=== PATIENT | male | born 1960 | race Caucasian/White ===

== ENCOUNTER 2021-07-27 16:33 | Observation (INO) | payer SELFPAY ==
[2021-07-27] MEDS ORDERED: Sodium Chloride 0.9% 1,000 ML IV ONE ×2 (17:15→17:55)
--- NOTE | 2021-07-27 17:22 | EDM.PDOC ---
ED HPI GENERAL MEDICAL PROBLEM - General Stated Complaint: BLOOD/PROTEIN/SUGAR IN URINE Time Seen by Provider: 07/27/21 17:00 Source of Information: Reports: Patient History Limitations: Reports: No Limitations - History of Present Illness INITIAL COMMENTS - FREE TEXT/NARRATIVE: c/o malaise pt and from [facility], drove here 2d ago, [place] at [place] pt with chills and malaise and loss of taste x 2d, no fever ( has checked it several times) pt went to [facility] where u/a showed SG 1.025, pH 5.5, glucose 100, ketone 40, protein 100, no nitrate/l esterase, no wbc, 0-3 rbc, no bacteria advised to come to ED pt only on thyroid med, no medical problems not had COVID, has had Pfizer COVID vax x 2 and booster 5d ago (on 07/22) FS glucose 218 at [place] - Related Data Allergies Allergy/AdvReac Type Severity Reaction Status Date / Time No Known Allergies Allergy Verified 07/27/21 17:11 ED ROS GENERAL - Review of Systems Review Of Systems: See Below Constitutional: Reports: No Symptoms, Weakness, Fatigue. Denies: Fever, Chills, Malaise, Night Sweats, Diaphoresis, Decreased Appetite HEENT: Reports: No Symptoms Respiratory: Reports: No Symptoms. Denies: Cough Cardiovascular: Reports: No Symptoms. Denies: Chest Pain Endocrine: Reports: No Symptoms GI/Abdominal: Reports: No Symptoms : Reports: No Symptoms Musculoskeletal: Reports: No Symptoms Skin: Reports: No Symptoms Neurological: Reports: No Symptoms Psychiatric: Reports: No Symptoms Hematologic/Lymphatic: Reports: No Symptoms Immunologic: Reports: No Symptoms ED EXAM, GENERAL - Physical Exam Exam: See Below Exam Limited By: No Limitations General Appearance: Alert, WD/WN, No Apparent Distress Eye Exam: Bilateral Eye: Normal Inspection Ears: Hearing Grossly Normal Nose: Normal Inspection, Normal Mucosa, No Blood Throat/Mouth: Normal Inspection, Normal Lips, Normal Voice, No Airway Compromise Head: Atraumatic, Normocephalic Neck: Normal Inspection, Supple, Non-Tender, Full Range of Motion. No: Lymphadenopathy (R), Lymphadenopathy (L) Respiratory/Chest: No Respiratory Distress, Lungs Clear, Normal Breath Sounds, Chest Non-Tender Cardiovascular: Regular Rate, Rhythm, No Edema, No Murmur, No Rub GI/Abdominal: Soft, Non-Tender, No Distention Back Exam: Normal Inspection, Full Range of Motion Extremities: Normal Inspection, Normal Range of Motion, Non-Tender, No Pedal Edema, Other (dec'd turgor UEs without tenting) Neurological: Alert, Oriented, CN II-XII Intact, Normal Cognition, Normal Gait, No Motor/Sensory Deficits Psychiatric: Normal Affect, Normal Mood Skin Exam: Warm, Dry, Intact, Normal Color, No Rash Lymphatic: No Adenopathy Course - Vital Signs Last Recorded V/S: Last Vital Signs Temp 37.2 C 07/27/21 16:33 Pulse 95 07/27/21 16:33 Resp 18 07/27/21 16:33 BP 121/81 07/27/21 16:33 Pulse Ox 95 07/27/21 16:33 - Orders/Labs/Meds Orders: Active Orders 24 hr Category Date Time Status Admission Status [Patient Status] [ADT] Routine ADT 07/27/21 20:41 Ordered Abdomen Pelvis w Cont [CT] Stat Exams 07/27/21 18:18 Ordered Ang Chest [CT] Stat Exams 07/27/21 18:16 Taken Piperacillin/Tazobactam [Zosyn] 4.5 gm Med 07/27/21 20:45 Ordered Sodium Chloride 0.9% [Normal Saline AdvBag] 100 ml IV Q6H Medication Orders Piperacillin Sod/Tazobactam (Sod 4.5 gm/ Sodium Chloride) 100 mls @ 200 mls/hr IV Q6H CHRISTINA Labs: Laboratory Tests 07/27/21 07/27/21 07/27/21 Range/Units 17:20 17:22 17:22 WBC 15.7 H (3.2-10.1) x10-3/uL RBC 4.40 (3.90-5.90) x10(6)uL Hgb 13.4 (12.9-17.7) g/dL Hct 39.7 (38.3-50.1) % MCV 90.2 (80.8-98.7) fL MCH 30.4 (27.0-33.3) pg MCHC 33.7 (28.7-35.3) g/dL RDW 12.7 (12.4-15.0) % Plt Count 254 (117-477) x10(3)uL MPV 6.7 (6.7-11.0) fL Neut % (Auto) 82.1 H (40.3-71.8) % Lymph % (Auto) 6.9 L (15.8-45.3) % [place] % (Auto) 10.3 (5.5-15.2) % Eos % (Auto) 0.1 (0.1-6.8) % Baso % (Auto) 0.6 (0.3-3.8) % Neut # (Auto) 12.9 H (1.7-6.9) x10-3/uL Lymph # (Auto) 1.1 (0.5-4.5) x10-3/uL [place] # (Auto) 1.6 H (0.0-1.2) x10-3/uL Eos # (Auto) 0.0 (0.0-0.6) x10-3/uL Baso # (Auto) 0.1 (0.0-0.3) x10-3/uL Sodium 133 L (135-145) mmol/L Potassium 3.7 (3.5-5.3) mmol/L Chloride 97 L (100-110) mmol/L Carbon Dioxide 25 (21-32) mmol/L BUN 14 (7-18) mg/dL Creatinine 1.3 (0.70-1.30) mg/dL Est Cr Clr Drug Dosing TNP Estimated GFR (MDRD) 56 L (>60) BUN/Creatinine Ratio 10.8 (9-20) Glucose 128 H (80-116) mg/dL Calcium 8.9 (8.6-10.2) mg/dL Total Bilirubin 1.6 H (0.1-1.3) mg/dL Direct Bilirubin (0.10-0.20) mg/dL AST 41 H (5-25) IU/L ALT 71 H (12-36) U/L Alkaline Phosphatase 103 (56-112) IU/L C-Reactive Protein (0.5-0.9) mg/dL Total Protein 7.9 (6.0-8.0) g/dL Albumin 3.0 L (3.2-4.6) g/dL Globulin 4.9 g/dL Albumin/Globulin Ratio 0.6 Influenza Type A RNA Negative (NEGATIVE) Influenza Type B RNA Negative (NEGATIVE) SARS-CoV-2 RNA (MOISES) Negative (NEGATIVE) 07/27/21 07/27/21 Range/Units 17:22 17:22 WBC (3.2-10.1) x10-3/uL RBC (3.90-5.90) x10(6)uL Hgb (12.9-17.7) g/dL Hct (38.3-50.1) % MCV (80.8-98.7) fL MCH (27.0-33.3) pg MCHC (28.7-35.3) g/dL RDW (12.4-15.0) % Plt Count (117-477) x10(3)uL MPV (6.7-11.0) fL Neut % (Auto) (40.3-71.8) % Lymph % (Auto) (15.8-45.3) % [place] % (Auto) (5.5-15.2) % Eos % (Auto) (0.1-6.8) % Baso % (Auto) (0.3-3.8) % Neut # (Auto) (1.7-6.9) x10-3/uL Lymph # (Auto) (0.5-4.5) x10-3/uL [place] # (Auto) (0.0-1.2) x10-3/uL Eos # (Auto) (0.0-0.6) x10-3/uL Baso # (Auto) (0.0-0.3) x10-3/uL Sodium (135-145) mmol/L Potassium (3.5-5.3) mmol/L Chloride (100-110) mmol/L Carbon Dioxide (21-32) mmol/L BUN (7-18) mg/dL Creatinine (0.70-1.30) mg/dL Est Cr Clr Drug Dosing Estimated GFR (MDRD) (>60) BUN/Creatinine Ratio (9-20) Glucose (80-116) mg/dL Calcium (8.6-10.2) mg/dL Total Bilirubin (0.1-1.3) mg/dL Direct Bilirubin 0.84 H (0.10-0.20) mg/dL AST (5-25) IU/L ALT (12-36) U/L Alkaline Phosphatase (56-112) IU/L C-Reactive Protein 34.2 H* (0.5-0.9) mg/dL Total Protein (6.0-8.0) g/dL Albumin (3.2-4.6) g/dL Globulin g/dL Albumin/Globulin Ratio Influenza Type A RNA (NEGATIVE) Influenza Type B RNA (NEGATIVE) SARS-CoV-2 RNA (MOISES) (NEGATIVE) Meds: Medications Generic Name Dose Route Start Last Admin Trade Name Freq PRN Reason Stop Dose Admin Piperacillin Sod/Tazobactam 100 mls @ 200 mls/hr 07/27/21 20:45 Sod 4.5 gm/ Sodium Chloride IV Q6H CHRISTINA Discontinued Medications Generic Name Dose Route Start Last Admin Trade Name Freq PRN Reason Stop Dose Admin Sodium Chloride 1,000 mls @ 999 mls/hr 07/27/21 17:15 07/27/21 17:20 Normal Saline IV 07/27/21 18:15 999 mls/hr .BOLUS ONE Administration Sodium Chloride 1,000 mls @ 999 mls/hr 07/27/21 17:55 07/27/21 18:00 Normal Saline IV 07/27/21 18:55 999 mls/hr .BOLUS ONE Administration Iopamidol 100 ml 07/27/21 18:23 07/27/21 18:48 Iopamidol 755 Mg/Ml 100 Ml Bottle IV 07/27/21 18:24 100 ml . DIRECTED ONE Administration - Re-Assessments/Exams Free Text/Narrative Re-Assessment/Exam: 07/27/21 21:03 chest CTawith no PE per radiologist CT abd/pelvis without contrast with no GB per radiologist, inhomogenities of left lobe of liver most c/w liver abscess, pt also with pneumobilia of left biliary duct pt reports he has his GB, that he had PUD 1.5y ago and his own doctor in [facility] had considerable difficulty locating his GB old labs and imaging not available, altho will contact PCP tomorrow to send prior labs and imaging reports d/w Dr Anthony who thinks pt may have an intrahepatic GB, he recommended admission with IV antbxs, said he would see pt in AM in consult will admit to obs states that international travel medical care covered under her insurance labs and imaging reviewed with [facility] on diversion all day, neither [facility] or [facility] have beds, pt placed on wait list at [facility] Departure - Departure Time of Disposition: 21:12 Disposition: Refer to Observation Preliminary Cause of *Q: Other_Special Instruction Clinical Impression: Liver abscess, Elevated C-reactive protein (CRP), Elevated WBC count, Left shift, Ketonuria, Moderate dehydration, Elevated liver function tests, Hyperbilirubinemia, High direct bilirubin, Chills, Low grade fever, Anorexia - Discharge Information *PRESCRIPTION DRUG MONITORING PROGRAM REVIEWED*: Not Applicable *COPY OF PRESCRIPTION DRUG MONITORING REPORT IN PATIENT LIBORIO: Not Applicable Sepsis Event Note (ED) - Focused Exam Vital Signs: Vital Signs Temp Pulse Resp BP Pulse Ox 07/27/21 16:33 37.2 C 95 18 121/81 95 - My Orders Last 24 Hours: My Active Orders 07/27/21 18:16 Ang Chest [CT] Stat 07/27/21 18:18 Abdomen Pelvis w Cont [CT] Stat 07/27/21 20:41 Admission Status [Patient Status] [ADT] Routine 07/27/21 20:45 Piperacillin/Tazobactam [Zosyn] 4.5 gm Sodium Chloride 0.9% [Normal Saline AdvBag] 100 ml IV Q6H - Assessment/Plan Last 24 Hours: My Active Orders 07/27/21 18:16 Ang Chest [CT] Stat 07/27/21 18:18 Abdomen Pelvis w Cont [CT] Stat 07/27/21 20:41 Admission Status [Patient Status] [ADT] Routine 07/27/21 20:45 Piperacillin/Tazobactam [Zosyn] 4.5 gm Sodium Chloride 0.9% [Normal Saline AdvBag] 100 ml IV Q6H
[2021-07-27 18:20] LABS: CORONAVIRUS COVID-19 NAA NEGATIVE (NEGATIVE)
[2021-07-27] MEDS ORDERED: Iopamidol 755 Mg/ML 100 ML Bottle IV ONE (18:23)
[2021-07-27] MEDS: Piperacillin/Tazobactam 4.5 GM in Sodium Chloride 0.9% 100 ML IV SCH (21:07)
[2021-07-27] MEDS: D5 1/2 NS w/ 20 mEq/L KCl 1,000 ML IV SCH (23:07)
[2021-07-27] MEDS: Acetaminophen 325 MG Tab PO PRN (23:13)
[2021-07-28] MEDS: Piperacillin/Tazobactam 4.5 GM in Sodium Chloride 0.9% 100 ML IV SCH ×4 (03:05→20:43)
[2021-07-28] MEDS: Sodium Chloride 0.9% 10 ML Syringe FLUSH PRN ×2 (03:41→18:33)
--- NOTE | 2021-07-28 09:09 | PCM.HP.2 ---
H&P History of Present Illness - General Date of Service: 07/28/21 Admit Problem/Dx: Admission Diagnosis/Problem Admission Diagnosis/Problem Abscess Source of Information: Patient History Limitations: Reports: No Limitations - History of Present Illness Initial Comments - Free Text/Narative: Neema is a 61-year-old male from [place] who presented to the ED with a 2 day history of malaise, chills and feeling poorly. He also endorsed decreased appetite. He is previously healthy and needs usual state of health until 2 days ago. He said complete vaccination. He CT scan of the abdomen and pelvis showed a possible abscess in the liver. Surgery has been consulted. Epigastric Pain Score (Numeric/FACES): 1 - Related Data Allergies/Adverse Reactions: Allergies Allergy/AdvReac Type Severity Reaction Status Date / Time No Known Allergies Allergy Verified 07/27/21 17:11 Home Medications: Home Meds Levothyroxine 175 mcg PO Q48H 07/28/21 [History] Levothyroxine 200 mcg PO Q48H 07/28/21 [History] Past Medical History Musculoskeletal History: Reports: Gout Endocrine/Metabolic History: Reports: Hypothyroidism - Infectious Disease History Infectious Disease History: Reports: Chicken Pox - Past Surgical History HEENT Surgical History: Reports: Tonsillectomy Other HEENT Surgeries/Procedures: Tonsillectomy when he was still young. GI Surgical History: Reports: Colonoscopy Other GI Surgeries/Procedures: Routine colonoscopy (for 50+) done last year. Endocrine Surgical History: Reports: None Social & Family History - Family History GI: Reports: Other (See Below) Other GI Family History: His father of colon cancer. Oncologic: Reports: Breast, Colon Other Oncologic Family History: His father of colon cancer, mom was recently diagnosed with breast CA. - Tobacco Use Tobacco Use Status *Q: Current Every Day Tobacco User Years of Tobacco use: 25 Packs/Tins Daily: 1 Used Tobacco, but Quit: No Second Hand Smoke Exposure: No - Caffeine Use Caffeine Use: Reports: Coffee Other Caffeine Use: Everyday coffee drinker. - Alcohol Use Date of Last Drink: 07/17/21 - Recreational Drug Use Recreational Drug Use: No H&P Review of Systems - Review of Systems: Review Of Systems: Comprehensive ROS is negative, except as noted in HPI. Exam - Exam Exam: See Below - Vital Signs Vital Signs: Last Vital Signs Temp 100.3 F 07/28/21 08:19 Pulse 97 07/28/21 08:19 Resp 18 07/28/21 08:19 BP 123/64 07/28/21 08:19 Pulse Ox 94 L 07/28/21 08:19 Weight: 115.694 kg - Exam General: Alert, Oriented, 4 HEENT: PERRLA, Hearing Intact, Mucosa Moist & [place], Nares Patent, Normal Nasal Septum, Posterior Pharynx Clear, Conjunctiva Clear, EOMI, EACs Clear, TMs Clear Neck: Supple, Trachea Midline, 2 Lungs: Clear to Auscultation, Normal Respiratory Effort Cardiovascular: Regular Rate, Regular Rhythm GI/Abdominal Exam: Normal Bowel Sounds, Soft, Non-Tender, No Organomegaly, No Distention, No Abnormal Bruit, No Mass, Pelvis Stable (Male) Exam: Deferred Rectal (Males) Exam: Deferred Back Exam: Normal Inspection, Full Range of Motion, NT Extremities: Normal Inspection, Normal Range of Motion, Non-Tender, No Pedal Edema, Normal Capillary Refill Skin: Warm, Dry, Intact Neurological: Cranial Nerves Intact, Reflexes Equal Bilateral Neuro Extensive - Mental Status: Alert, Oriented x3, Normal Mood/Affect, Normal Cognition Neuro Extensive - Motor, Sensory, Reflexes: CN II-XII Intact, Normal Gait, Normal Reflexes Psychiatric: Alert, Normal Affect, Normal Mood - Patient Data Lab Results Last 24 hrs: Laboratory Results - last 24 hr 07/27/21 07/27/21 07/27/21 Range/Units 17:20 17:22 17:22 WBC 15.7 H (3.2-10.1) x10-3/uL RBC 4.40 (3.90-5.90) x10(6)uL Hgb 13.4 (12.9-17.7) g/dL Hct 39.7 (38.3-50.1) % MCV 90.2 (80.8-98.7) fL MCH 30.4 (27.0-33.3) pg MCHC 33.7 (28.7-35.3) g/dL RDW 12.7 (12.4-15.0) % Plt Count 254 (117-477) x10(3)uL MPV 6.7 (6.7-11.0) fL Neut % (Auto) 82.1 H (40.3-71.8) % Lymph % (Auto) 6.9 L (15.8-45.3) % [place] % (Auto) 10.3 (5.5-15.2) % Eos % (Auto) 0.1 (0.1-6.8) % Baso % (Auto) 0.6 (0.3-3.8) % Neut # (Auto) 12.9 H (1.7-6.9) x10-3/uL Lymph # (Auto) 1.1 (0.5-4.5) x10-3/uL [place] # (Auto) 1.6 H (0.0-1.2) x10-3/uL Eos # (Auto) 0.0 (0.0-0.6) x10-3/uL Baso # (Auto) 0.1 (0.0-0.3) x10-3/uL Add Manual Diff Neutrophils % (Manual) (46-82) % Band Neutrophils % (0-6) % Lymphocytes % (Manual) (13-37) % Monocytes % (Manual) (4-12) % Sodium 133 L (135-145) mmol/L Potassium 3.7 (3.5-5.3) mmol/L Chloride 97 L (100-110) mmol/L Carbon Dioxide 25 (21-32) mmol/L BUN 14 (7-18) mg/dL Creatinine 1.3 (0.70-1.30) mg/dL Est Cr Clr Drug Dosing TNP Estimated GFR (MDRD) 56 L (>60) BUN/Creatinine Ratio 10.8 (9-20) Glucose 128 H (80-116) mg/dL Calcium 8.9 (8.6-10.2) mg/dL Total Bilirubin 1.6 H (0.1-1.3) mg/dL Direct Bilirubin (0.10-0.20) mg/dL AST 41 H (5-25) IU/L ALT 71 H (12-36) U/L Alkaline Phosphatase 103 (56-112) IU/L Troponin I (4.0-60.3) pg/mL C-Reactive Protein (0.5-0.9) mg/dL Total Protein 7.9 (6.0-8.0) g/dL Albumin 3.0 L (3.2-4.6) g/dL Globulin 4.9 g/dL Albumin/Globulin Ratio 0.6 Influenza Type A RNA Negative (NEGATIVE) Influenza Type B RNA Negative (NEGATIVE) SARS-CoV-2 RNA (MOISES) Negative (NEGATIVE) 07/27/21 07/27/21 07/28/21 Range/Units 17:22 17:22 06:45 WBC 15.2 H (3.2-10.1) x10-3/uL RBC 4.13 (3.90-5.90) x10(6)uL Hgb 12.7 L (12.9-17.7) g/dL Hct 37.3 L (38.3-50.1) % MCV 90.3 (80.8-98.7) fL MCH 30.7 (27.0-33.3) pg MCHC 33.9 (28.7-35.3) g/dL RDW 12.6 (12.4-15.0) % Plt Count 238 (117-477) x10(3)uL MPV 6.9 (6.7-11.0) fL Neut % (Auto) (40.3-71.8) % Lymph % (Auto) (15.8-45.3) % [place] % (Auto) (5.5-15.2) % Eos % (Auto) (0.1-6.8) % Baso % (Auto) (0.3-3.8) % Neut # (Auto) (1.7-6.9) x10-3/uL Lymph # (Auto) (0.5-4.5) x10-3/uL [place] # (Auto) (0.0-1.2) x10-3/uL Eos # (Auto) (0.0-0.6) x10-3/uL Baso # (Auto) (0.0-0.3) x10-3/uL Add Manual Diff Yes Neutrophils % (Manual) 82 (46-82) % Band Neutrophils % 3 (0-6) % Lymphocytes % (Manual) 10 L (13-37) % Monocytes % (Manual) 5 (4-12) % Sodium (135-145) mmol/L Potassium (3.5-5.3) mmol/L Chloride (100-110) mmol/L Carbon Dioxide (21-32) mmol/L BUN (7-18) mg/dL Creatinine (0.70-1.30) mg/dL Est Cr Clr Drug Dosing Estimated GFR (MDRD) (>60) BUN/Creatinine Ratio (9-20) Glucose (80-116) mg/dL Calcium (8.6-10.2) mg/dL Total Bilirubin (0.1-1.3) mg/dL Direct Bilirubin 0.84 H (0.10-0.20) mg/dL AST (5-25) IU/L ALT (12-36) U/L Alkaline Phosphatase (56-112) IU/L Troponin I (4.0-60.3) pg/mL C-Reactive Protein 34.2 H* (0.5-0.9) mg/dL Total Protein (6.0-8.0) g/dL Albumin (3.2-4.6) g/dL Globulin g/dL Albumin/Globulin Ratio Influenza Type A RNA (NEGATIVE) Influenza Type B RNA (NEGATIVE) SARS-CoV-2 RNA (MOISES) (NEGATIVE) 07/28/21 07/28/21 Range/Units 06:45 06:45 WBC (3.2-10.1) x10-3/uL RBC (3.90-5.90) x10(6)uL Hgb (12.9-17.7) g/dL Hct (38.3-50.1) % MCV (80.8-98.7) fL MCH (27.0-33.3) pg MCHC (28.7-35.3) g/dL RDW (12.4-15.0) % Plt Count (117-477) x10(3)uL MPV (6.7-11.0) fL Neut % (Auto) (40.3-71.8) % Lymph % (Auto) (15.8-45.3) % [place] % (Auto) (5.5-15.2) % Eos % (Auto) (0.1-6.8) % Baso % (Auto) (0.3-3.8) % Neut # (Auto) (1.7-6.9) x10-3/uL Lymph # (Auto) (0.5-4.5) x10-3/uL [place] # (Auto) (0.0-1.2) x10-3/uL Eos # (Auto) (0.0-0.6) x10-3/uL Baso # (Auto) (0.0-0.3) x10-3/uL Add Manual Diff Neutrophils % (Manual) (46-82) % Band Neutrophils % (0-6) % Lymphocytes % (Manual) (13-37) % Monocytes % (Manual) (4-12) % Sodium 136 (135-145) mmol/L Potassium 3.7 (3.5-5.3) mmol/L Chloride 101 (100-110) mmol/L Carbon Dioxide 24 (21-32) mmol/L BUN 13 (7-18) mg/dL Creatinine 1.3 (0.70-1.30) mg/dL Est Cr Clr Drug Dosing 61.95 Estimated GFR (MDRD) 56 L (>60) BUN/Creatinine Ratio 10.0 (9-20) Glucose 159 H (80-116) mg/dL Calcium 8.5 L (8.6-10.2) mg/dL Total Bilirubin (0.1-1.3) mg/dL Direct Bilirubin (0.10-0.20) mg/dL AST (5-25) IU/L ALT (12-36) U/L Alkaline Phosphatase (56-112) IU/L Troponin I 7.9 (4.0-60.3) pg/mL C-Reactive Protein 32.0 H* (0.5-0.9) mg/dL Total Protein (6.0-8.0) g/dL Albumin (3.2-4.6) g/dL Globulin g/dL Albumin/Globulin Ratio Influenza Type A RNA (NEGATIVE) Influenza Type B RNA (NEGATIVE) SARS-CoV-2 RNA (MOISES) (NEGATIVE) Result Diagrams: 07/28/21 06:45 07/28/21 06:45 #1 Interpretation EKG Date: 07/28/21 Rhythm: NSR [place]: Normal P-Wave: Present QRS: Normal ST-T: Normal Sepsis Event Note - Evaluation Sepsis Screening Result: No Definite Risk - Focused Exam Vital Signs: Vital Signs Temp Temp Temp Pulse Resp BP Pulse Ox 07/28/21 08:19 100.3 F 97 18 123/64 94 L 07/28/21 04:00 98.1 F 95 16 126/74 95 07/28/21 00:00 98.9 F 81 16 07/27/21 23:43 98.9 F 07/27/21 23:13 100.3 F 07/27/21 22:18 100.9 F H 100 16 120/79 95 07/27/21 21:30 99.3 F 96 18 97 - Problem List (1) Tobacco abuse SNOMED Code(s): 220374207 ICD Code: Z72.0 - TOBACCO USE Status: Acute Current Visit: Yes (2) Hypothyroidism SNOMED Code(s): 67813057 ICD Code: E03.9 - HYPOTHYROIDISM, UNSPECIFIED Status: Acute Current Visit: Yes (3) Liver abscess SNOMED Code(s): 34374204 ICD Code: K75.0 - ABSCESS OF LIVER Status: Acute Current Visit: Yes Problem List Initiated/Reviewed/Updated: Yes Orders Last 24hrs: Active Orders 24 hr Category Date Time Status Admission Status [Patient Status] [ADT] Routine ADT 07/27/21 20:41 Active Cardiac Monitoring [RC] CONTINUOUS Care 07/27/21 21:14 Active EKG Documentation Completion [RC] AM Care 07/28/21 06:00 Active EKG Documentation Completion [RC] ASDIRECTED Care 07/27/21 21:19 Active Height and Weight [RC] UPON Care 07/27/21 21:14 Active Oxygen Therapy [RC] PRN Care 07/27/21 21:14 Active Up ad Jocelyn [RC] ASDIRECTED Care 07/27/21 21:14 Active VTE/DVT Education [RC] Per Unit Routine Care 07/27/21 21:14 Active Vital Signs [RC] Q4H Care 07/27/21 21:14 Active Nothing per Oral After Midnight Diet [DIET] Diet 07/28/21 Breakfast Active Abdomen Ltd [US] Routine Exams 07/28/21 21:11 Ordered Abdomen Pelvis w Cont [CT] Stat Exams 07/27/21 18:18 Taken Ang Chest [CT] Stat Exams 07/27/21 18:16 Taken BASIC METABOLIC PANEL,BMP [CHEM] DAILY Lab 07/29/21 06:00 Ordered BASIC METABOLIC PANEL,BMP [CHEM] DAILY Lab 07/30/21 06:00 Ordered BASIC METABOLIC PANEL,BMP [CHEM] DAILY Lab 07/31/21 06:00 Ordered BASIC METABOLIC PANEL,BMP [CHEM] DAILY Lab 08/01/21 06:00 Ordered CBC WITH AUTO DIFF [HEME] DAILY Lab 07/29/21 05:00 Ordered CBC WITH AUTO DIFF [HEME] DAILY Lab 07/30/21 05:00 Ordered CBC WITH AUTO DIFF [HEME] DAILY Lab 07/31/21 05:00 Ordered CBC WITH AUTO DIFF [HEME] DAILY Lab 08/01/21 05:00 Ordered CRP [C-REACTIVE PROTEIN] [CHEM] DAILY Lab 07/29/21 05:00 Ordered CRP [C-REACTIVE PROTEIN] [CHEM] DAILY Lab 07/30/21 05:00 Ordered CRP [C-REACTIVE PROTEIN] [CHEM] DAILY Lab 07/31/21 05:00 Ordered CRP [C-REACTIVE PROTEIN] [CHEM] DAILY Lab 08/01/21 05:00 Ordered Acetaminophen [TylenoL] Med 07/27/21 22:55 Active 650 mg PO Q6H PRN D5 1/2 NS w/ 20 mEq/L KCl 1,000 ml Med 07/27/21 21:30 Active IV ASDIRECTED Levothyroxine Med 07/29/21 09:00 Active 175 mcg PO Q48H Levothyroxine Med 07/28/21 08:45 Active 200 mcg PO Q48H Piperacillin/Tazobactam [Zosyn] 4.5 gm Med 07/27/21 20:45 Active Sodium Chloride 0.9% [Normal Saline AdvBag] 100 ml IV Q6H Sodium Chloride 0.9% [Saline Flush] Med 07/28/21 04:04 Active 10 ml FLUSH ASDIRECTED PRN Resuscitation Status Routine Resus Stat 07/27/21 21:14 Ordered EKG 12 Lead [EK] AM Ther 07/28/21 05:11 Ordered EKG 12 Lead [EK] AM Ther 07/30/21 05:11 Ordered Medication Orders Acetaminophen (Acetaminophen 325 Mg Tab) 650 mg PO Q6H PRN PRN Reason: Fever Last Admin: 07/27/21 23:13 Dose: 650 mg Documented by: KIT Piperacillin Sod/Tazobactam (Sod 4.5 gm/ Sodium Chloride) 100 mls @ 200 mls/hr IV Q6H CHRISTINA Last Admin: 07/28/21 08:53 Dose: 200 mls/hr Documented by: Admin: 07/28/21 03:05 Dose: 200 mls/hr Documented by: Admin: 07/27/21 21:07 Dose: 200 mls/hr Documented by: KYREE Potassium Chloride/Dextrose/Sod Cl (D5 1/2 Ns W/ 20 Meq/L Kcl) 1,000 mls @ 75 mls/hr IV ASDIRECTED CHRISTINA Last Admin: 07/27/21 23:07 Dose: 75 mls/hr Documented by: KIT Levothyroxine Sodium (Levothyroxine 200 Mcg Tab *Ptom) 200 mcg PO Q48H CHRISTINA Levothyroxine Sodium (Levothyroxine 175 Mcg Tab *Ptom) 175 mcg PO Q48H CHRISTINA Sodium Chloride (Sodium Chloride 0.9% 10 Ml Syringe) 10 ml FLUSH ASDIRECTED PRN PRN Reason: Keep Vein Open Last Admin: 07/28/21 03:41 Dose: 10 ml Documented by: KIT Assessment/Plan Comment:: Continue IC antibiotics,fluid,NPO status until surgery has been consulted.
[2021-07-28] MEDS ORDERED: Non-Formulary Medication 1 Each (Levothyroxine [Levothyroxine] 175 MCG Tablet) PO SCH (09:15)
[2021-07-28] MEDS ORDERED: Non-Formulary Medication 1 Each (Levothyroxine [Levothyroxine] 200 MCG Tablet) PO SCH (09:15)
[2021-07-28] MEDS: LEVOTHYROXINE 200 MCG PO SCH (11:09)
[2021-07-28] MEDS: D5 1/2 NS w/ 20 mEq/L KCl 1,000 ML IV SCH (14:03)
[2021-07-28] MEDS: Acetaminophen 325 MG Tab PO PRN ×2 (14:36→20:53)
[2021-07-28] MEDS: metroNIDAZOLE/Normal Saline 500 MG in Premix Bag 1 BAG IV SCH (18:33)
--- NOTE | 2021-07-28 19:59 | CONS ---
DATE OF CONSULTATION: 07/28/2021 REQUESTING PHYSICIAN: Daniel Varghese MD HISTORY OF PRESENT ILLNESS: This 61-year-old male arrived here from his home in [facility] and noted rather sudden onset of symptoms of weakness, chills, and decreased appetite. The patient even recalls that during the drive, he did feel colder than normal. He says he felt completely normal before he left home. The patient was seen in the outpatient clinic yesterday for these symptoms, which he noted first 3 days ago and was admitted yesterday. He has been placed on IV antibiotics and currently says he feels better with more energy, fever, chills, and a general overall improvement. The patient has had some very mild epigastric discomfort, but no sharp abdominal pain. The patient has been evaluated with a CT scan done here, which was interpreted as showing a possible abscess in the left lobe of the liver. CT scan films are reviewed and show irregular mass effect in the left hepatic lobe. The gallbladder is not readily visualized. Interpretation suggest an abscess is most likely. Ultrasound has been performed today, but results are pending. The patient and his state that 2 years ago, he had sharp epigastric pain. An ultrasound was performed at that time in his home hospital and initially it was noted the gallbladder was difficult to see, but was later identified, but was not felt to be the problem at that time. Laboratory studies while in the hospital here have noted an elevated serum white blood cell count of over 15,000. His CRP is also elevated at 32. Liver functions show mild liver enzyme elevation with a bilirubin of 1.6. PAST MEDICAL HISTORY: Notes a history of hypothyroidism. He otherwise has been feeling well. He denies any known previous history of cardio or pulmonary disease. His only previous surgery was tonsillectomy. He, on repeated questioning, denies any previous abdominal surgery. FAMILY HISTORY: Notes that his mother did have to have cholecystectomy, but there was no other known history of GI disease in the family. SOCIAL HISTORY: The patient is currently retired and lives in [facility]. He is traveling here with his who is dealing with some family matters. SYSTEM REVIEW: Before the patient left on his trip, he says he felt well with no cough, cold, or sore throat symptoms. He has not been having any abdominal pain. Notes his bowel function has been normal with no recent change in bowel function. He states his last colonoscopy was in 2019 and it was normal. PHYSICAL EXAMINATION: VITAL SIGNS: Current temperature is 100.3, pulse 97, blood pressure is 123/64, respirations 18 and unlabored. GENERAL: The patient is alert adult male. He is currently in no acute distress. HEENT: Head is normocephalic. No scleral icterus. No cervical masses. HEART: Regular without murmur. LUNGS: Clear. Breath sounds are equal. There is no wheezing. ABDOMEN: The patient's abdomen is soft. There is no distention. No hepatic or splenic enlargement. No abdominal masses noted and only minimal tenderness to deep direct palpation in the epigastric region. EXTREMITIES: Show no obvious deformity. IMPRESSION: Infection, likely intraabdominal with possible hepatic abscess. RECOMMENDATIONS: Advised referral to tertiary care center for definitive treatment and continue use of IV antibiotics until definitive care for his hepatic abnormality can be performed. /[id number] [place]
[2021-07-29] MEDS: metroNIDAZOLE/Normal Saline 500 MG in Premix Bag 1 BAG IV SCH ×3 (00:53→16:44)
[2021-07-29] MEDS: Piperacillin/Tazobactam 4.5 GM in Sodium Chloride 0.9% 100 ML IV SCH ×4 (02:34→21:12)
[2021-07-29] MEDS: Acetaminophen 325 MG Tab PO PRN (05:46)
[2021-07-29] MEDS: D5 1/2 NS w/ 20 mEq/L KCl 1,000 ML IV SCH ×2 (08:06→22:45)
[2021-07-29] MEDS ORDERED: LEVOTHYROXINE 175 MCG PO SCH (09:00)
--- NOTE | 2021-07-29 09:06 | PCM.PN ---
- General Info Date of Service: 07/29/21 Subjective Update: Has had a fever this morning.Otherwise feels good. Functional Status: Reports: Pain Controlled - Review of Systems HEENT: Reports: No Symptoms Pulmonary: Reports: No Symptoms Cardiovascular: Reports: No Symptoms Gastrointestinal: Reports: No Symptoms - Patient Data Vitals - Most Recent: Last Vital Signs Temp 99.6 F 07/29/21 05:46 Pulse 90 07/29/21 05:45 Resp 16 07/29/21 05:45 BP 112/76 07/29/21 05:45 Pulse Ox 95 07/29/21 05:45 Weight - Most Recent: 115.694 kg I&O - Last 24 Hours: Intake & Output 07/28/21 07/29/21 07/29/21 22:59 06:59 14:59 Intake Total 485 537 Balance 485 537 Lab Results Last 24 Hours: Laboratory Results - last 24 hr 07/29/21 07/29/21 07/29/21 Range/Units 06:20 06:20 06:20 WBC 11.4 H (3.2-10.1) x10-3/uL RBC 3.93 (3.90-5.90) x10(6)uL Hgb 12.1 L (12.9-17.7) g/dL Hct 35.9 L (38.3-50.1) % MCV 91.2 (80.8-98.7) fL MCH 30.6 (27.0-33.3) pg MCHC 33.6 (28.7-35.3) g/dL RDW 12.6 (12.4-15.0) % Plt Count 245 (117-477) x10(3)uL MPV 7.0 (6.7-11.0) fL Neut % (Auto) 82.7 H (40.3-71.8) % Lymph % (Auto) 8.9 L (15.8-45.3) % [place] % (Auto) 7.6 (5.5-15.2) % Eos % (Auto) 0.6 (0.1-6.8) % Baso % (Auto) 0.2 L (0.3-3.8) % Neut # (Auto) 9.4 H (1.7-6.9) x10-3/uL Lymph # (Auto) 1.0 (0.5-4.5) x10-3/uL [place] # (Auto) 0.9 (0.0-1.2) x10-3/uL Eos # (Auto) 0.1 (0.0-0.6) x10-3/uL Baso # (Auto) 0.0 (0.0-0.3) x10-3/uL Sodium 138 (135-145) mmol/L Potassium 3.9 (3.5-5.3) mmol/L Chloride 103 (100-110) mmol/L Carbon Dioxide 25 (21-32) mmol/L BUN 11 (7-18) mg/dL Creatinine 1.3 (0.70-1.30) mg/dL Est Cr Clr Drug Dosing 61.95 mL/min Estimated GFR (MDRD) 56 L (>60) BUN/Creatinine Ratio 8.5 L (9-20) Glucose 129 H (80-116) mg/dL Calcium 8.4 L (8.6-10.2) mg/dL C-Reactive Protein 31.6 H* (0.5-0.9) mg/dL Med Orders - Current: Current Medications Acetaminophen (Acetaminophen 325 Mg Tab) 650 mg PO Q6H PRN PRN Reason: Fever Last Admin: 07/29/21 05:46 Dose: 650 mg Documented by: Piperacillin Sod/Tazobactam (Sod 4.5 gm/ Sodium Chloride) 100 mls @ 200 mls/hr IV Q6H [facility] Last Admin: 07/29/21 08:08 Dose: 200 mls/hr Documented by: Metronidazole 500 mg/ Premix 100 mls @ 100 mls/hr IV Q8H [facility] Last Admin: 07/29/21 09:04 Dose: 100 mls/hr Documented by: Potassium Chloride/Dextrose/Sod Cl (D5 1/2 Ns W/ 20 Meq/L Kcl) 1,000 mls @ 75 mls/hr IV Q13H [facility] Last Admin: 07/29/21 08:06 Dose: 75 mls/hr Documented by: Levothyroxine Sodium (Levothyroxine 200 Mcg Tab *Ptom) 200 mcg PO Q48H [facility] Last Admin: 07/28/21 11:09 Dose: 200 mcg Documented by: Levothyroxine Sodium (Levothyroxine 175 Mcg Tab *Ptom) 175 mcg PO Q48H [facility] Last Admin: 07/29/21 08:13 Dose: 175 mcg Documented by: Sodium Chloride (Sodium Chloride 0.9% 10 Ml Syringe) 10 ml FLUSH ASDIRECTED PRN PRN Reason: Keep Vein Open Last Admin: 07/28/21 18:33 Dose: 10 ml Documented by: Discontinued Medications Sodium Chloride (Normal Saline) 1,000 mls @ 999 mls/hr IV .BOLUS ONE Stop: 07/27/21 18:15 Last Admin: 07/27/21 17:20 Dose: 999 mls/hr Documented by: Sodium Chloride (Normal Saline) 1,000 mls @ 999 mls/hr IV .BOLUS ONE Stop: 07/27/21 18:55 Last Admin: 07/27/21 18:00 Dose: 999 mls/hr Documented by: Potassium Chloride/Dextrose/Sod Cl (D5 1/2 Ns W/ 20 Meq/L Kcl) 1,000 mls @ 75 mls/hr IV ASDIRECTED [facility] Last Admin: 07/28/21 14:03 Dose: 75 mls/hr Documented by: Iopamidol (Iopamidol 755 Mg/Ml 100 Ml Bottle) 100 ml IV . DIRECTED ONE Stop: 07/27/21 18:24 Last Admin: 07/27/21 18:48 Dose: 100 ml Documented by: - Exam General: Alert Neck: Supple Lungs: Normal Respiratory Effort GI/Abdominal Exam: Soft - Patient Data Lab Results Last 24 hrs: Laboratory Results - last 24 hr 07/29/21 07/29/21 07/29/21 Range/Units 06:20 06:20 06:20 WBC 11.4 H (3.2-10.1) x10-3/uL RBC 3.93 (3.90-5.90) x10(6)uL Hgb 12.1 L (12.9-17.7) g/dL Hct 35.9 L (38.3-50.1) % MCV 91.2 (80.8-98.7) fL MCH 30.6 (27.0-33.3) pg MCHC 33.6 (28.7-35.3) g/dL RDW 12.6 (12.4-15.0) % Plt Count 245 (117-477) x10(3)uL MPV 7.0 (6.7-11.0) fL Neut % (Auto) 82.7 H (40.3-71.8) % Lymph % (Auto) 8.9 L (15.8-45.3) % [place] % (Auto) 7.6 (5.5-15.2) % Eos % (Auto) 0.6 (0.1-6.8) % Baso % (Auto) 0.2 L (0.3-3.8) % Neut # (Auto) 9.4 H (1.7-6.9) x10-3/uL Lymph # (Auto) 1.0 (0.5-4.5) x10-3/uL [place] # (Auto) 0.9 (0.0-1.2) x10-3/uL Eos # (Auto) 0.1 (0.0-0.6) x10-3/uL Baso # (Auto) 0.0 (0.0-0.3) x10-3/uL Sodium 138 (135-145) mmol/L Potassium 3.9 (3.5-5.3) mmol/L Chloride 103 (100-110) mmol/L Carbon Dioxide 25 (21-32) mmol/L BUN 11 (7-18) mg/dL Creatinine 1.3 (0.70-1.30) mg/dL Est Cr Clr Drug Dosing 61.95 mL/min Estimated GFR (MDRD) 56 L (>60) BUN/Creatinine Ratio 8.5 L (9-20) Glucose 129 H (80-116) mg/dL Calcium 8.4 L (8.6-10.2) mg/dL C-Reactive Protein 31.6 H* (0.5-0.9) mg/dL Result Diagrams: 07/29/21 06:20 07/29/21 06:20 Sepsis Event Note - Evaluation Sepsis Screening Result: No Definite Risk - Focused Exam Vital Signs: Vital Signs Temp Temp Pulse Resp BP Pulse Ox 07/29/21 05:46 99.6 F 07/29/21 05:45 99.6 F 90 16 112/76 95 07/29/21 02:00 76 16 07/28/21 22:20 99.9 F - Problem List & Annotations (1) Tobacco abuse SNOMED Code(s): 129950281 Code(s): Z72.0 - TOBACCO USE Status: Acute Current Visit: Yes (2) Hypothyroidism SNOMED Code(s): 39308614 Code(s): E03.9 - HYPOTHYROIDISM, UNSPECIFIED Status: Acute Current Visit: Yes (3) Liver abscess SNOMED Code(s): 89155765 Code(s): K75.0 - ABSCESS OF LIVER Status: Acute Current Visit: Yes - Problem List Review Problem List Initiated/Reviewed/Updated: Yes - My Orders Last 24 Hours: My Active Orders 07/28/21 08:45 Levothyroxine 200 mcg PO Q48H 07/28/21 09:10 Blood Culture x2 Reflex Set [OM.PC] Urgent 07/28/21 09:35 CULTURE BLOOD [BC] Urgent 07/28/21 09:40 CULTURE BLOOD [BC] Urgent 07/28/21 Dinner Regular Diet [DIET] 07/28/21 17:00 metroNIDAZOLE/Normal Saline [Flagyl in NS 500 MG/100 ML] 500 mg Premix Bag 1 bag IV Q8H 07/29/21 09:00 Levothyroxine 175 mcg PO Q48H - Plan Plan:: Ultrasound showed multiple cystic hypoechoic lesions, likely abscesses although could not rule out neoplastic process. I will continue with IV antibiotics at this time, as we wait for a bed at [facility]. I did call up this morning, and we hope that later today he can go up.
[2021-07-29] MEDS: Sodium Chloride 0.9% 10 ML Syringe FLUSH PRN (15:35)
[2021-07-29] MEDS: Ondansetron 4 MG/2 ML SDV IVPUSH PRN (15:35)
[2021-07-30] MEDS: metroNIDAZOLE/Normal Saline 500 MG in Premix Bag 1 BAG IV SCH ×3 (01:11→17:10)
[2021-07-30] MEDS: Piperacillin/Tazobactam 4.5 GM in Sodium Chloride 0.9% 100 ML IV SCH ×4 (02:53→20:57)
[2021-07-30] MEDS: LEVOTHYROXINE 200 MCG PO SCH (07:47)
--- NOTE | 2021-07-30 08:58 | PCM.PN ---
- General Info Date of Service: 07/30/21 Admission Dx/Problem (Free Text): Patient states he has some right upper quadrant pain. Said some fevers possibly but he is not sure. No shortness of breath, runny nose, sore throat. - Patient Data Vitals - Most Recent: Last Vital Signs Temp 99.3 F 07/30/21 06:00 Pulse 85 07/30/21 06:00 Resp 16 07/30/21 06:00 BP 129/78 07/30/21 06:00 Pulse Ox 94 L 07/30/21 06:00 Weight - Most Recent: 257 lb 2 oz I&O - Last 24 Hours: Intake & Output 07/29/21 07/30/21 07/30/21 22:59 06:59 14:59 Intake Total 500 970 Balance 500 970 Lab Results Last 24 Hours: Laboratory Results - last 24 hr 07/30/21 07/30/21 07/30/21 Range/Units 06:35 06:35 06:35 WBC 11.6 H (3.2-10.1) x10-3/uL RBC 3.91 (3.90-5.90) x10(6)uL Hgb 12.0 L (12.9-17.7) g/dL Hct 35.6 L (38.3-50.1) % MCV 91.0 (80.8-98.7) fL MCH 30.8 (27.0-33.3) pg MCHC 33.8 (28.7-35.3) g/dL RDW 12.7 (12.4-15.0) % Plt Count 265 (117-477) x10(3)uL MPV 6.7 (6.7-11.0) fL Neut % (Auto) 81.8 H (40.3-71.8) % Lymph % (Auto) 8.4 L (15.8-45.3) % [place] % (Auto) 8.4 (5.5-15.2) % Eos % (Auto) 1.0 (0.1-6.8) % Baso % (Auto) 0.4 (0.3-3.8) % Neut # (Auto) 9.5 H (1.7-6.9) x10-3/uL Lymph # (Auto) 1.0 (0.5-4.5) x10-3/uL [place] # (Auto) 1.0 (0.0-1.2) x10-3/uL Eos # (Auto) 0.1 (0.0-0.6) x10-3/uL Baso # (Auto) 0.0 (0.0-0.3) x10-3/uL Sodium 134 L (135-145) mmol/L Potassium 4.0 (3.5-5.3) mmol/L Chloride 99 L (100-110) mmol/L Carbon Dioxide 26 (21-32) mmol/L BUN 12 (7-18) mg/dL Creatinine 1.3 (0.70-1.30) mg/dL Est Cr Clr Drug Dosing 61.95 mL/min Estimated GFR (MDRD) 56 L (>60) BUN/Creatinine Ratio 9.2 (9-20) Glucose 118 H (80-116) mg/dL Calcium 8.5 L (8.6-10.2) mg/dL Total Bilirubin 0.9 (0.1-1.3) mg/dL AST 36 H D (5-25) IU/L ALT 64 H (12-36) U/L Alkaline Phosphatase 95 (56-112) IU/L C-Reactive Protein 28.5 H* (0.5-0.9) mg/dL Total Protein 6.6 (6.0-8.0) g/dL Albumin 2.2 L (3.2-4.6) g/dL Globulin 4.4 g/dL Albumin/Globulin Ratio 0.5 [place]zo Results Last 24 Hours: Microbiology 07/28/21 09:40 Aerobic Blood Culture - Preliminary Blood - Venous - Lab Draw NO GROWTH AFTER 1 DAY Anaerobic Blood Culture - Preliminary NO GROWTH AFTER 1 DAY 07/28/21 09:35 Aerobic Blood Culture - Preliminary Blood - Venous NO GROWTH AFTER 1 DAY Anaerobic Blood Culture - Preliminary NO GROWTH AFTER 1 DAY Med Orders - Current: Current Medications Acetaminophen (Acetaminophen 325 Mg Tab) 650 mg PO Q6H PRN PRN Reason: Fever Last Admin: 07/29/21 05:46 Dose: 650 mg Documented by: Piperacillin Sod/Tazobactam (Sod 4.5 gm/ Sodium Chloride) 100 mls @ 200 mls/hr IV Q6H [facility] Last Admin: 07/30/21 07:48 Dose: 200 mls/hr Documented by: Metronidazole 500 mg/ Premix 100 mls @ 100 mls/hr IV Q8H [facility] Last Admin: 07/30/21 01:11 Dose: 100 mls/hr Documented by: Potassium Chloride/Dextrose/Sod Cl (D5 1/2 Ns W/ 20 Meq/L Kcl) 1,000 mls @ 75 mls/hr IV Q13H [facility] Last Admin: 07/29/21 22:45 Dose: 75 mls/hr Documented by: Levothyroxine Sodium (Levothyroxine 200 Mcg Tab *Ptom) 200 mcg PO Q48H [facility] Last Admin: 07/30/21 07:47 Dose: 200 mcg Documented by: Levothyroxine Sodium (Levothyroxine 175 Mcg Tab *Ptom) 175 mcg PO Q48H [facility] Last Admin: 07/29/21 08:13 Dose: 175 mcg Documented by: Ondansetron HCl (Ondansetron 4 Mg/2 Ml Sdv) 4 mg IVPUSH Q6H PRN PRN Reason: Nausea/Vomiting Last Admin: 07/29/21 15:35 Dose: 4 mg Documented by: Sodium Chloride (Sodium Chloride 0.9% 10 Ml Syringe) 10 ml FLUSH ASDIRECTED PRN PRN Reason: Keep Vein Open Last Admin: 07/29/21 15:35 Dose: 10 ml Documented by: Discontinued Medications Sodium Chloride (Normal Saline) 1,000 mls @ 999 mls/hr IV .BOLUS ONE Stop: 07/27/21 18:15 Last Admin: 07/27/21 17:20 Dose: 999 mls/hr Documented by: Sodium Chloride (Normal Saline) 1,000 mls @ 999 mls/hr IV .BOLUS ONE Stop: 07/27/21 18:55 Last Admin: 07/27/21 18:00 Dose: 999 mls/hr Documented by: Potassium Chloride/Dextrose/Sod Cl (D5 1/2 Ns W/ 20 Meq/L Kcl) 1,000 mls @ 75 mls/hr IV ASDIRECTED [facility] Last Admin: 07/28/21 14:03 Dose: 75 mls/hr Documented by: Iopamidol (Iopamidol 755 Mg/Ml 100 Ml Bottle) 100 ml IV . DIRECTED ONE Stop: 07/27/21 18:24 Last Admin: 07/27/21 18:48 Dose: 100 ml Documented by: - Exam General: Alert, Oriented Lungs: Normal Respiratory Effort GI/Abdominal Exam: Normal Bowel Sounds, Soft, Tender (Right upper quadrant on deep palpation. No rebound or guarding. Barth sign negative) - Patient Data Lab Results Last 24 hrs: Laboratory Results - last 24 hr 07/30/21 07/30/21 07/30/21 Range/Units 06:35 06:35 06:35 WBC 11.6 H (3.2-10.1) x10-3/uL RBC 3.91 (3.90-5.90) x10(6)uL Hgb 12.0 L (12.9-17.7) g/dL Hct 35.6 L (38.3-50.1) % MCV 91.0 (80.8-98.7) fL MCH 30.8 (27.0-33.3) pg MCHC 33.8 (28.7-35.3) g/dL RDW 12.7 (12.4-15.0) % Plt Count 265 (117-477) x10(3)uL MPV 6.7 (6.7-11.0) fL Neut % (Auto) 81.8 H (40.3-71.8) % Lymph % (Auto) 8.4 L (15.8-45.3) % [place] % (Auto) 8.4 (5.5-15.2) % Eos % (Auto) 1.0 (0.1-6.8) % Baso % (Auto) 0.4 (0.3-3.8) % Neut # (Auto) 9.5 H (1.7-6.9) x10-3/uL Lymph # (Auto) 1.0 (0.5-4.5) x10-3/uL [place] # (Auto) 1.0 (0.0-1.2) x10-3/uL Eos # (Auto) 0.1 (0.0-0.6) x10-3/uL Baso # (Auto) 0.0 (0.0-0.3) x10-3/uL Sodium 134 L (135-145) mmol/L Potassium 4.0 (3.5-5.3) mmol/L Chloride 99 L (100-110) mmol/L Carbon Dioxide 26 (21-32) mmol/L BUN 12 (7-18) mg/dL Creatinine 1.3 (0.70-1.30) mg/dL Est Cr Clr Drug Dosing 61.95 mL/min Estimated GFR (MDRD) 56 L (>60) BUN/Creatinine Ratio 9.2 (9-20) Glucose 118 H (80-116) mg/dL Calcium 8.5 L (8.6-10.2) mg/dL Total Bilirubin 0.9 (0.1-1.3) mg/dL AST 36 H D (5-25) IU/L ALT 64 H (12-36) U/L Alkaline Phosphatase 95 (56-112) IU/L C-Reactive Protein 28.5 H* (0.5-0.9) mg/dL Total Protein 6.6 (6.0-8.0) g/dL Albumin 2.2 L (3.2-4.6) g/dL Globulin 4.4 g/dL Albumin/Globulin Ratio 0.5 Result Diagrams: 07/30/21 06:35 07/30/21 06:35 Alonzo Results Last 24 hrs: Microbiology 07/28/21 09:40 Aerobic Blood Culture - Preliminary Blood - Venous - Lab Draw NO GROWTH AFTER 1 DAY Anaerobic Blood Culture - Preliminary NO GROWTH AFTER 1 DAY 07/28/21 09:35 Aerobic Blood Culture - Preliminary Blood - Venous NO GROWTH AFTER 1 DAY Anaerobic Blood Culture - Preliminary NO GROWTH AFTER 1 DAY Sepsis Event Note - Evaluation Sepsis Screening Result: No Definite Risk - Focused Exam Vital Signs: Vital Signs Temp Temp Pulse Resp BP Pulse Ox Pulse Ox 07/30/21 06:00 99.3 F 85 16 129/78 94 L 07/30/21 00:00 99.9 F 92 16 125/78 94 L 07/29/21 21:14 95 - Problem List & Annotations (1) Hypothyroidism SNOMED Code(s): 32464007 Code(s): E03.9 - HYPOTHYROIDISM, UNSPECIFIED Status: Acute Current Visit: Yes (2) Liver abscess SNOMED Code(s): 00349619 Code(s): K75.0 - ABSCESS OF LIVER Status: Acute Current Visit: Yes (3) Tobacco abuse SNOMED Code(s): 599631404 Code(s): Z72.0 - TOBACCO USE Status: Acute Current Visit: Yes - Problem List Review Problem List Initiated/Reviewed/Updated: Yes - Plan Plan:: 1. Called [facility] and he is on the waiting list but they are full. 2. Called [facility] again and they think they might have some openings later if I called back. 3. Continue IV antibiotics.
[2021-07-30] MEDS ORDERED: Enoxaparin 40 MG/0.4 ML Syringe SUBCUT SCH (10:00)
[2021-07-30] MEDS: Ondansetron 4 MG/2 ML SDV IVPUSH PRN (12:52)
[2021-07-30] MEDS: Acetaminophen 325 MG Tab PO PRN (12:52)
[2021-07-30] MEDS: Sodium Chloride 0.9% 10 ML Syringe FLUSH PRN (12:52)
[2021-07-30] MEDS: D5 1/2 NS w/ 20 mEq/L KCl 1,000 ML IV SCH (14:53)
--- NOTE | 2021-07-30 17:36 | PCM.DCSUM1 ---
Discharge Summary - Hospital Course Free Text/Narrative:: Spittle course-he had a CT scan in the ER that showed probable liver abscess. He was admitted and placed on Flagyl and Zosyn IV. He also had ultrasound this at the same thing. Could not rule out neoplasm. Dr. Varghese to transfer him out but was unable to because of both [facility] and [place] referral. He called back every day and continued on IV antibiotics. Had a surgery consult and they felt they could not do anything here and recommended high-level care. Patient had a little low-grade fever at the end but it was higher at the beginning. His vitals were stable. A little abdominal pain but exam was pretty benign. He was very comfortable and is able to eat and drink. He was placed on Lovenox for VTE prophylaxis. Called up to [place] and they graciously accepted him for transfer. Dr. Claudine edmondson. We sent ultrasound and CT per PACS. Brief History: Neema is a 61-year-old male from [place] who presented to the ED with a 2 day history of malaise, chills and feeling poorly. He also endorsed decreased appetite. He is previously healthy and needs usual state of health until 2 days ago. He said complete vaccination. He CT scan of the abdomen and pelvis showed a possible abscess in the liver. Surgery has been consulted. Epigastric Diagnosis: Stroke: No - Discharge Data Discharge Date: 07/30/21 Discharge Disposition: DC/Tfer to Acute Hospital 02 Preliminary Cause of *Q: Other_Special Instruction Condition: Good - Referral to Home Health Primary Care Physician: PCP Not In Area - Discharge Diagnosis/Problem(s) (1) Hypothyroidism SNOMED Code(s): 07103244 ICD Code: E03.9 - HYPOTHYROIDISM, UNSPECIFIED Status: Acute Current Visit: Yes (2) Liver abscess SNOMED Code(s): 88594654 ICD Code: K75.0 - ABSCESS OF LIVER Status: Acute Current Visit: Yes (3) Tobacco abuse SNOMED Code(s): 126448459 ICD Code: Z72.0 - TOBACCO USE Status: Acute Current Visit: Yes - Patient Instructions Diet: Regular Diet as Tolerated Activity: As Tolerated Driving: Do Not Drive Showering/Bathing: May Shower Notify Provider of: Fever, Increased Pain Other/Special Instructions: 1. Transfer to [facility] by ambulance. Re: higher level of care. 2. Dr Bosch accepting. - Discharge Plan *PRESCRIPTION DRUG MONITORING PROGRAM REVIEWED*: Not Applicable *COPY OF PRESCRIPTION DRUG MONITORING REPORT IN PATIENT LIBORIO: Not Applicable Home Medications: Home Meds Levothyroxine 175 mcg PO Q48H 07/28/21 [History] Levothyroxine 200 mcg PO Q48H 07/28/21 [History] Acetaminophen [Tylenol] 650 mg PO Q6H PRN tablet 07/30/21 [Rx] D5 1/2 NS w/ 20 mEq/L KCl [KCl 20 mEq in D5W-1/2 NS] 100 ml IV Q13H bag 07/30/21 [Rx] Enoxaparin [Lovenox] 40 mg SUBCUT Q24H syringe 07/30/21 [Rx] Levothyroxine 175 mcg PO Q48H tablet 07/30/21 [Rx] Levothyroxine 200 mcg PO Q48H tablet 07/30/21 [Rx] Piperacillin/Tazobactam [Zosyn] 4.5 gm IV Q6H vial 07/30/21 [Rx] Premix Bag 1 bag IV Q8H bag 07/30/21 [Rx] Sodium Chloride 0.9% [Saline Flush] 10 ml FLUSH ASDIRECTED PRN syringe 07/30/21 [Rx] metroNIDAZOLE/Normal Saline [Flagyl in NS 500 MG/100 ML] 500 mg IV Q8H bag 07/30/21 [Rx] Patient Handouts: Liver Abscess, Fall Prevention in Hospitals, Adult, Venous Thromboembolism Prevention Forms: ED Department Discharge Referrals: PCP,Not In Area [Primary Care Provider] - - Discharge Summary/Plan Comment DC Time >30 min.: Yes Total # of Minutes for Discharge Time: 30 minutes seeing this patient doing the paperwork and discussing care with Krystle mullen and Dr. Chow. - Patient Data Vitals - Most Recent: Last Vital Signs Temp 98.9 F 07/30/21 16:00 Pulse 80 07/30/21 16:00 Resp 14 07/30/21 16:00 BP 128/87 07/30/21 16:00 Pulse Ox 95 07/30/21 16:00 Weight - Most Recent: 257 lb 2 oz I&O - Last 24 hours: Intake & Output 07/30/21 07/30/21 07/30/21 06:59 14:59 22:59 Intake Total 970 969 Balance 970 689 Lab Results - Last 24 hrs: Laboratory Results - last 24 hr 07/30/21 07/30/21 07/30/21 Range/Units 06:35 06:35 06:35 WBC 11.6 H (3.2-10.1) x10-3/uL RBC 3.91 (3.90-5.90) x10(6)uL Hgb 12.0 L (12.9-17.7) g/dL Hct 35.6 L (38.3-50.1) % MCV 91.0 (80.8-98.7) fL MCH 30.8 (27.0-33.3) pg MCHC 33.8 (28.7-35.3) g/dL RDW 12.7 (12.4-15.0) % Plt Count 265 (117-477) x10(3)uL MPV 6.7 (6.7-11.0) fL Neut % (Auto) 81.8 H (40.3-71.8) % Lymph % (Auto) 8.4 L (15.8-45.3) % Worth % (Auto) 8.4 (5.5-15.2) % Eos % (Auto) 1.0 (0.1-6.8) % Baso % (Auto) 0.4 (0.3-3.8) % Neut # (Auto) 9.5 H (1.7-6.9) x10-3/uL Lymph # (Auto) 1.0 (0.5-4.5) x10-3/uL Worth # (Auto) 1.0 (0.0-1.2) x10-3/uL Eos # (Auto) 0.1 (0.0-0.6) x10-3/uL Baso # (Auto) 0.0 (0.0-0.3) x10-3/uL Sodium 134 L (135-145) mmol/L Potassium 4.0 (3.5-5.3) mmol/L Chloride 99 L (100-110) mmol/L Carbon Dioxide 26 (21-32) mmol/L BUN 12 (7-18) mg/dL Creatinine 1.3 (0.70-1.30) mg/dL Est Cr Clr Drug Dosing 61.95 mL/min Estimated GFR (MDRD) 56 L (>60) BUN/Creatinine Ratio 9.2 (9-20) Glucose 118 H (80-116) mg/dL Calcium 8.5 L (8.6-10.2) mg/dL Total Bilirubin 0.9 (0.1-1.3) mg/dL AST 36 H D (5-25) IU/L ALT 64 H (12-36) U/L Alkaline Phosphatase 95 (56-112) IU/L C-Reactive Protein 28.5 H* (0.5-0.9) mg/dL Total Protein 6.6 (6.0-8.0) g/dL Albumin 2.2 L (3.2-4.6) g/dL Globulin 4.4 g/dL Albumin/Globulin Ratio 0.5 KACI Results - Last 24 hrs: Microbiology 07/28/21 09:35 Aerobic Blood Culture - Preliminary Blood - Venous NO GROWTH AFTER 2 DAYS Anaerobic Blood Culture - Preliminary NO GROWTH AFTER 2 DAYS 07/28/21 09:40 Aerobic Blood Culture - Preliminary Blood - Venous - Lab Draw NO GROWTH AFTER 2 DAYS Anaerobic Blood Culture - Preliminary NO GROWTH AFTER 2 DAYS Med Orders - Current: Current Medications Acetaminophen (Acetaminophen 325 Mg Tab) 650 mg PO Q6H PRN PRN Reason: Fever Last Admin: 07/30/21 12:52 Dose: 650 mg Documented by: Enoxaparin Sodium (Enoxaparin 40 Mg/0.4 Ml Syringe) 40 mg SUBCUT Q24H [facility] Last Admin: 07/30/21 10:30 Dose: 40 mg Documented by: Piperacillin Sod/Tazobactam (Sod 4.5 gm/ Sodium Chloride) 100 mls @ 200 mls/hr IV Q6H [facility] Last Admin: 07/30/21 14:25 Dose: 200 mls/hr Documented by: Metronidazole 500 mg/ Premix 100 mls @ 100 mls/hr IV Q8H [facility] Last Admin: 07/30/21 17:10 Dose: 100 mls/hr Documented by: Potassium Chloride/Dextrose/Sod Cl (D5 1/2 Ns W/ 20 Meq/L Kcl) 1,000 mls @ 75 mls/hr IV Q13H [facility] Last Admin: 07/30/21 14:53 Dose: 75 mls/hr Documented by: Levothyroxine Sodium (Levothyroxine 200 Mcg Tab *Ptom) 200 mcg PO Q48H [facility] Last Admin: 07/30/21 07:47 Dose: 200 mcg Documented by: Levothyroxine Sodium (Levothyroxine 175 Mcg Tab *Ptom) 175 mcg PO Q48H [facility] Last Admin: 07/29/21 08:13 Dose: 175 mcg Documented by: Ondansetron HCl (Ondansetron 4 Mg/2 Ml Sdv) 4 mg IVPUSH Q6H PRN PRN Reason: Nausea/Vomiting Last Admin: 07/30/21 12:52 Dose: 4 mg Documented by: Sodium Chloride (Sodium Chloride 0.9% 10 Ml Syringe) 10 ml FLUSH ASDIRECTED PRN PRN Reason: Keep Vein Open Last Admin: 07/30/21 12:52 Dose: 10 ml Documented by: Discontinued Medications Sodium Chloride (Normal Saline) 1,000 mls @ 999 mls/hr IV .BOLUS ONE Stop: 07/27/21 18:15 Last Admin: 07/27/21 17:20 Dose: 999 mls/hr Documented by: Sodium Chloride (Normal Saline) 1,000 mls @ 999 mls/hr IV .BOLUS ONE Stop: 07/27/21 18:55 Last Admin: 07/27/21 18:00 Dose: 999 mls/hr Documented by: Potassium Chloride/Dextrose/Sod Cl (D5 1/2 Ns W/ 20 Meq/L Kcl) 1,000 mls @ 75 mls/hr IV ASDIRECTED [facility] Last Admin: 07/28/21 14:03 Dose: 75 mls/hr Documented by: Iopamidol (Iopamidol 755 Mg/Ml 100 Ml Bottle) 100 ml IV . DIRECTED ONE Stop: 07/27/21 18:24 Last Admin: 07/27/21 18:48 Dose: 100 ml Documented by:
[2021-07-31] MEDS: metroNIDAZOLE/Normal Saline 500 MG in Premix Bag 1 BAG IV SCH (00:39)
[2021-07-31] MEDS: Acetaminophen 325 MG Tab PO PRN (00:55)
[2021-07-31] MEDS: Piperacillin/Tazobactam 4.5 GM in Sodium Chloride 0.9% 100 ML IV SCH (02:52)
[2021-07-31] MEDS: D5 1/2 NS w/ 20 mEq/L KCl 1,000 ML IV SCH (07:55)
== END 2021-07-31 08:30 ==
LOC: FB.ED 16:33 → FB.MS 20:41
PROVIDERS: ADMIT Emergency Medicine; ATTEND Family Medicine
DX: K75.0 Abscess of liver (principal); E03.9 Hypothyroidism, unspecified; M10.9 Gout, unspecified; F17.210 Nicotine dependence, cigarettes, uncomplicated; Z79.899 Other long term (current) drug therapy; Z98.890 Other specified postprocedural states; Z79.890 Hormone replacement therapy; Z20.822 Contact with and (suspected) exposure to COVID-19
CPT/HCPCS: 0240U; 36415; 71275; 74177; 76705; 80048; 80053; 82248; 84484; 85025; 86140; 87040; 93005; 96365; 96366; 96367; 96372; 96375; 96376; 99285-25; A9270-GY; G0378; J1650; J2405; J2543; J3480; J3490; J7030; Q9967